=== PATIENT | male | born 1990 | race Caucasian/White ===

== ENCOUNTER 2020-11-23 18:56 | Emergency (ER) | payer OTHER ==
[~2020-11-23] VITALS: Ht 185.4 cm; Wt 181.4 kg
[2020-11-23 19:23] LABS: ABSOLUTE EOSINOPHILS 0.2 thou/uL (0.0-0.7); ABSOLUTE LYMPHOCYTES 1.8 thou/uL (0.8-5.3); ABSOLUTE MONOCYTES 0.5 thou/uL (0.0-1.2); BASOPHILS 0.6 %; EOSINOPHILS 2.6 %; HEMATOCRIT 45.7 % (42.0-52.0); HEMOGLOBIN 15.8 gm/dL (14.0-18.0); LYMPHOCYTES 23.4 %; MCH 33.6 pg (26.0-34.0); MCHC 34.5 g/dL (28.0-37.0); MCV 97.5 fL (80.0-100.0); MONOCYTES 6.8 %; MPV 6.6 fl. (7.2-11.1); NUCLEATED RBCS 0 /100WBC; PLATELET COUNT* 219 thou/uL (150-400); POLYS 66.6 %; RBC 4.69 mil/uL (4.50-6.00); RDW-CV 16.2 % (10.5-14.5); WBC 7.5 thou/uL (4.0-11.0)
[2020-11-23 19:30] LABS: CALCIUM 8.5 mg/dL (8.5-10.1); CREATININE 0.8 mg/dL (0.6-1.3); POTASSIUM 3.6 mmol/L (3.5-5.1)
[2020-11-23 19:35] LABS: ALBUMIN 3.2 g/dL (3.4-5.0); MAGNESIUM 2.2 mg/dL (1.8-2.4); TOTAL BILIRUBIN 0.7 mg/dL (<0.1-1.0); TOTAL PROTEIN 7.8 g/dL (6.4-8.2)
[2020-11-23 19:43] LABS: URINE BILIRUBIN NEGATIVE (Negative); URINE BLOOD NEGATIVE (Negative); URINE CLARITY CLEAR; URINE COLOR YELLOW; URINE GLUCOSE-RANDOM TRACE (Negative); URINE KETONES NEGATIVE (Negative); URINE LEUKOCYTES-REFLEX NEGATIVE (Negative); URINE NITRITE-REFLEX NEGATIVE (Negative); URINE PROTEIN NEGATIVE (Negative); URINE UROBILINOGEN 0.2 E.U./dl (0.2-1.0)
[2020-11-23 19:54] LABS: BARBITURATES Negative (Negative); BENZODIAZEPINES POSITIVE (Negative); COCAINE Negative (Negative); METHADONE Negative (Negative); OPIATES Negative (Negative); PCP Negative (Negative); THC POSITIVE (Negative)
[2020-11-23 20:04] LABS: AMP/METHAMP Negative (Negative)
[2020-11-23] MEDS ORDERED: ZOFRAN ODT4 MG PO (21:01)
[2020-11-23] MEDS ORDERED: CHLORDIAZEPOXID25 M1 PO (21:01)
[2020-11-23 21:58] VITALS: BP 133/77
--- NOTE | 2020-11-24 12:33 | EKG ---
[place] [address] ELECTROCARDIOGRAM REPORT Name: MINGO SANTOS Room: [facility]#: [id number] Admission: 11/23/20 Attend Phys: Discharge: 11/23/20 Date of : 88 Date of Service: 11/23/201941 Report #: [id number] THIS REPORT FOR: //name// [facility] ED Test Date: 2020-11-23 Test Time: 19:42:07 Pat Name: MINGO SANTOS Department: Room: Gender: [employer]: ID : [id number] Requested By: Sandra Willis Order Number: [id number] MD: Jarocho Wright Measurements Intervals [place] Rate: 99 P: 37 MS: 147 QRS: 5 QRSD: 126 T: 5 QT: 399 QTc: 513 Interpretive Statements Sinus rhythm Nonspecific intraventricular conduction delay No previous ECG available for comparison Electronically Signed On 11-24-2020 12:33:20 CDT by Jarocho Wright [email or web address] <ELECTRONICALLY SIGNED> By: Juan Wright MD, [facility] 11/24/20 1233 41 41 Juan Wright MD, [facility] /EPI
== END 2020-11-23 21:59 | disposition home or self-care (01) ==
LOC: M.ERS 18:56
PROVIDERS: Nurse Practitioner Family; Personal Emergency Response Attendant
DX: F10.129 Alcohol abuse with intoxication, unspecified (principal); Y90.3 Blood alcohol level of 60-79 mg/100 ml; R11.2 Nausea with vomiting, unspecified; R56.9 Unspecified convulsions; I10 Essential (primary) hypertension; F17.210 Nicotine dependence, cigarettes, uncomplicated; Z88.1 Allergy status to other antibiotic agents; Z88.2 Allergy status to sulfonamides